=== PATIENT | female | born 1960 ===

== ENCOUNTER 2017-10-12 07:10 | Day surgery (SDC) | payer OTHER ==
[2017-10-12] MEDS ORDERED: Lactated Ringer's 500 ML IV ONE (07:37)
[2017-10-12] MEDS ORDERED: Propofol 10 mg/ml Inj (20 ML) ONE (08:37)
[2017-10-12 09:07] VITALS: O2SAT 99
[2017-10-12 09:11] VITALS: BP 131/78; PULSE 74; RESP 19; TEMP 97
== END 2017-10-12 14:17 | disposition home or self-care (01) ==
LOC: H.ENDO 07:10
PROVIDERS: ATTEND Internal Medicine Gastroenterology
DX: R10.13 Epigastric pain (principal); E11.9 Type 2 diabetes mellitus without complications; I10 Essential (primary) hypertension; K31.89 Other diseases of stomach and duodenum; K29.80 Duodenitis without bleeding
CPT/HCPCS: 43239; 82948; 88305; J2001; J2704; J7120